=== PATIENT | female | born 1995 | race Two or more races ===

== ENCOUNTER 2017-09-28 21:55 | Observation (INO) | payer MEDICAID | END 2017-09-28 23:05 | disposition home or self-care (01) | DRG 566 | LOC: LDRP 21:55 → EDBD 21:55 | PROVIDERS: ADMIT Obstetrics & Gynecology; ATTEND Obstetrics & Gynecology | DX: O26.893 Other specified pregnancy related conditions, third trimester (principal); G44.89 Other headache syndrome; O99.350 Diseases of the nervous system complicating pregnancy, unspecified trimester; O42.92 Full-term premature rupture of membranes, unspecified as to length of time between rupture and onset of labor; O62.9 Abnormality of forces of labor, unspecified; M54.9 Dorsalgia, unspecified; R10.9 Unspecified abdominal pain; Z3A.37 37 weeks gestation of pregnancy | CPT/HCPCS: 59025; 81002; G0378 ==

== ENCOUNTER 2017-10-09 10:45 | Observation (INO) | payer MEDICAID ==
[2017-10-09 12:31] LABS: INR 0.88 (0.9-1.15); Partial Thromboplastin Time 26.8 sec (23.78-33.04); Prothrombin Time 9.5 sec (9.27-12.13)
[2017-10-09 12:40] LABS: Basophils # (auto) 0 uL; Basophils % (auto) 0.1 % (0.0-2.0); Eosinophils # (auto) 0.1 uL; Eosinophils % (auto) 1.2 % (0.0-7.0); Hematocrit 37.2 % (36.0-46.0); Hemoglobin 12.9 g/dL (12.2-16.2); Lymphocytes # (auto) 1.9 uL; Lymphocytes % (auto) 19.7 % (10.0-50.0); Mean Corpuscular Hemoglobin 32.8 pg (28.0-32.0); Mean Corpuscular Hgb Conc. 34.8 g/dL (32.0-36.0); Mean Corpuscular Volume 94.3 fL (80.0-100.0); Monocytes # (auto) 0.7 uL; Monocytes % (auto) 7.2 % (0.0-12.0); Neutrophils # (auto) 6.8 uL; Neutrophils % (auto) 71.8 % (37.0-80.0); Nucleated Red Blood Cells % 0.1 %; Platelet Count (auto) 265 10^3/uL (140-450); Red Blood Cells 3.95 10^6/uL (4.0-5.20); Red Cell Distribution Width 13.6 % (11.8-14.3); White Blood Cell 9.5 10^3/uL (4.4-10.8)
[2017-10-09 12:48] LABS: Albumin 2.8 g/dL (3.4-5.0); BUN/Creatinine Ratio 17.6; Bilirubin, Total 0.3 mg/dL (0.2-1.0); Calcium 9.2 mg/dL (8.5-10.1); Potassium 3.9 mmol/L (3.5-5.1); Total Protein 7.1 g/dL (6.4-8.2); Uric Acid 5.2 mg/dL (2.6-6.0)
[2017-10-09 12:51] LABS: Urine Bacteria MOD /hpf (None Seen); Urine Blood Negative /uL (Negative); Urine Specific Gravity 1.007 (1.001-1.035); Urine WBC 8 /hpf (0 - 5)
== END 2017-10-09 13:20 | disposition home or self-care (01) | DRG 566 ==
LOC: LDRP 10:45
PROVIDERS: ADMIT Obstetrics & Gynecology; ATTEND Obstetrics & Gynecology
DX: O36.8130 Decreased fetal movements, third trimester, not applicable or unspecified (principal); O32.1XX0 Maternal care for breech presentation, not applicable or unspecified; Z3A.39 39 weeks gestation of pregnancy
CPT/HCPCS: 36415; 59025; 76818; 80053; 81001; 81002; 84550; 85025; 85610; 85730; G0378

== ENCOUNTER 2017-10-11 05:10 | Inpatient (IN) | payer MEDICAID ==
[2017-10-11] VITALS (10 sets, daily range): BP systolic 95–128; BP diastolic 55–81
[~2017-10-11] VITALS: Ht 165.1 cm; Wt 87.1 kg
[2017-10-11] MEDS ORDERED: TETRACAINE 1% INJ 2 ML VIAL IJ ONE (06:43)
[2017-10-11 07:06] LABS: Basophils # (auto) 0 uL; Basophils % (auto) 0.1 % (0.0-2.0); Eosinophils # (auto) 0.1 uL; Eosinophils % (auto) 1.5 % (0.0-7.0); Hemoglobin 12.3 g/dL (12.2-16.2); Lymphocytes # (auto) 1.8 uL; Lymphocytes % (auto) 22.5 % (10.0-50.0); Mean Corpuscular Hemoglobin 32.9 pg (28.0-32.0); Mean Corpuscular Volume 94.1 fL (80.0-100.0); Monocytes # (auto) 0.6 uL; Monocytes % (auto) 7.2 % (0.0-12.0); Neutrophils # (auto) 5.4 uL; Neutrophils % (auto) 68.7 % (37.0-80.0); Nucleated Red Blood Cells % 0.1 %; Platelet Count (auto) 229 10^3/uL (140-450); Red Blood Cells 3.73 10^6/uL (4.0-5.20); Red Cell Distribution Width 13.5 % (11.8-14.3); White Blood Cell 7.9 10^3/uL (4.4-10.8)
[2017-10-11 07:18] LABS: Urine Bacteria FEW /hpf (None Seen); Urine Blood Negative /uL (Negative); Urine Mucus FEW (None Seen); Urine Specific Gravity 1.011 (1.001-1.035); Urine WBC 4 /hpf (0 - 5)
[2017-10-11 07:25] LABS: Albumin 2.6 g/dL (3.4-5.0); BUN/Creatinine Ratio 14.9; Calcium 8.9 mg/dL (8.5-10.1); INR 0.93 (0.9-1.15); Partial Thromboplastin Time 26.6 sec (23.78-33.04); Potassium 3.7 mmol/L (3.5-5.1)
[2017-10-11 07:30] LABS: Bilirubin, Total 0.4 mg/dL (0.2-1.0); Total Protein 6.6 g/dL (6.4-8.2)
[2017-10-11] MEDS ORDERED: PHENYLEPHRINE HCL 10 MG/ML VL IV ONE (09:35)
[2017-10-11] MEDS ORDERED: fentaNYL CITRATE 100 MCG/2 ML VL ONE (09:39)
[2017-10-11] MEDS ORDERED: MORPHINE SULF(PF) 0.5MG/ML 10ML VIAL ONE (09:39)
[2017-10-11] MEDS ORDERED: MIDAZOLAM HCL 1MG/1ML-2 ML VIAL ONE (09:40)
[2017-10-11] MEDS ORDERED: ceFAZolin 1GM VL ONE (10:01)
[2017-10-11] MEDS ORDERED: OXYTOCIN 10 UNIT/ML 10ML VIAL ONE (10:01)
[2017-10-11] MEDS ORDERED: ceFAZolin 1GM/100ML 50 ML IV SCH (10:45)
[2017-10-11] MEDS ORDERED: ONDANSETRON HCL 4 MG/2 ML VIAL IV PRN ×2 (10:45→11:00)
[2017-10-11] MEDS ORDERED: MORPHINE SULFATE 4 MG/ML SYR/VIAL IV PRN (10:45)
[2017-10-11] MEDS ORDERED: KETOROLAC TROMETH 30 MG/ML 1ML VIAL IV PRN ×2 (10:45→11:00)
[2017-10-11] MEDS ORDERED: diphenhdrAMINE HCL 50 MG/1 ML VL IV PRN (11:00)
[2017-10-11] MEDS ORDERED: NALBUPHINE HCL 10 MG/1ml INJECTION SUBCUT ONE (11:00)
[2017-10-11] MEDS ORDERED: ePHEDrine SULFATE 50 MG/ML AMP IV PRN (11:00)
[2017-10-11] MEDS ORDERED: LABETALOL HCL 5 MG/ML 4ML SYRINGE IV PRN (11:00)
[2017-10-11] MEDS ORDERED: DEXAMETHASONE SOD PHOS 10MG/1ML VIAL INJ IV PRN (11:00)
[2017-10-11] MEDS ORDERED: NALOXONE HCL 0.4 MG/ML VIAL IV PRN (11:00)
[2017-10-11] MEDS ORDERED: HYDROmorphone HCL 2 MG/ML VL IV PRN (11:00)
[2017-10-11] MEDS: LACT. RINGERS/OXYTOCIN 20UNITS 1,000 ML IV SCH ×2 (12:10→17:15)
[2017-10-11] MEDS: LACTATED RINGER'S 1,000 ML IV SCH ×2 (15:00→16:31)
[2017-10-11] MEDS: ceFAZolin 1GM/100ML 50 ML IV SCH (17:47)
[2017-10-11 20:00] LABS: Basophils # (auto) 0 uL; Basophils % (auto) 0.1 % (0.0-2.0); Eosinophils # (auto) 0 uL; Eosinophils % (auto) 0.3 % (0.0-7.0); Hematocrit 36.6 % (36.0-46.0); Hemoglobin 12.5 g/dL (12.2-16.2); Lymphocytes # (auto) 1.6 uL; Lymphocytes % (auto) 13.8 % (10.0-50.0); Mean Corpuscular Hemoglobin 32.7 pg (28.0-32.0); Mean Corpuscular Hgb Conc. 34.2 g/dL (32.0-36.0); Mean Corpuscular Volume 95.5 fL (80.0-100.0); Monocytes # (auto) 0.8 uL; Neutrophils % (auto) 78.8 % (37.0-80.0); Nucleated Red Blood Cells % 0.1 %; Platelet Count (auto) 236 10^3/uL (140-450); Red Blood Cells 3.83 10^6/uL (4.0-5.20); Red Cell Distribution Width 13.1 % (11.8-14.3); White Blood Cell 11.5 10^3/uL (4.4-10.8)
[2017-10-12] MEDS: ceFAZolin 1GM/100ML 50 ML IV SCH ×2 (01:43→10:10)
[2017-10-12 02:50] VITALS: BP 107/55
[2017-10-12 07:17] VITALS: BP 120/71
[2017-10-12 07:45] LABS: Basophils # (auto) 0 uL; Basophils % (auto) 0.1 % (0.0-2.0); Eosinophils # (auto) 0.1 uL; Eosinophils % (auto) 0.5 % (0.0-7.0); Hematocrit 35.8 % (36.0-46.0); Hemoglobin 12.2 g/dL (12.2-16.2); Lymphocytes # (auto) 1.7 uL; Mean Corpuscular Hemoglobin 32.5 pg (28.0-32.0); Mean Corpuscular Hgb Conc. 34.1 g/dL (32.0-36.0); Mean Corpuscular Volume 95.2 fL (80.0-100.0); Monocytes # (auto) 0.6 uL; Monocytes % (auto) 5.9 % (0.0-12.0); Neutrophils % (auto) 77.5 % (37.0-80.0); Nucleated Red Blood Cells % 0.1 %; Platelet Count (auto) 244 10^3/uL (140-450); Red Blood Cells 3.76 10^6/uL (4.0-5.20); Red Cell Distribution Width 13.5 % (11.8-14.3); White Blood Cell 10.3 10^3/uL (4.4-10.8)
[2017-10-12] MEDS ORDERED: BISACODYL 10 MG RECT SUPP PR PRN (08:15)
[2017-10-12] MEDS: LACTATED RINGER'S 1,000 ML IV SCH ×2 (08:30→18:04)
[2017-10-12] MEDS ORDERED: HYDROcodone-ACET 5/325MG TAB PO PRN (09:00)
[2017-10-12] MEDS: DOCUSATE SOD 100 MG CAP PO SCH ×2 (10:10→22:11)
[2017-10-12] MEDS: SIMETHICONE 80 MG CHEWABLE TABLET PO SCH ×3 (12:02→22:11)
[2017-10-12 15:26] VITALS: BP 117/60
[2017-10-12] MEDS: HYDROcodone-ACET 5/325MG TAB PO PRN ×2 (17:47→23:36)
[2017-10-12 19:00] VITALS: BP 120/70
[2017-10-12 23:00] VITALS: BP 116/72
[2017-10-13 03:30] VITALS: BP 111/55
[2017-10-13] MEDS: IBUPROFEN 800 MG TAB PO PRN ×2 (03:34→13:12)
[2017-10-13] MEDS: LACTATED RINGER'S 1,000 ML IV SCH ×2 (04:04→14:04)
[2017-10-13] MEDS: SIMETHICONE 80 MG CHEWABLE TABLET PO SCH ×4 (06:00→22:15)
[2017-10-13 07:10] VITALS: BP 110/64
[2017-10-13] MEDS: HYDROcodone-ACET 5/325MG TAB PO PRN ×3 (07:28→22:15)
[2017-10-13] MEDS: DOCUSATE SOD 100 MG CAP PO SCH ×2 (09:44→22:15)
[2017-10-13 11:19] VITALS: BP 116/62
[2017-10-13 15:28] VITALS: BP 128/80
[2017-10-13 19:00] VITALS: BP 137/74
[2017-10-13 22:58] VITALS: BP 130/76
[2017-10-14] MEDS: IBUPROFEN 800 MG TAB PO PRN (01:28)
[2017-10-14 04:00] VITALS: BP 124/74
[2017-10-14] MEDS: HYDROcodone-ACET 5/325MG TAB PO PRN ×2 (05:56→10:10)
[2017-10-14] MEDS: SIMETHICONE 80 MG CHEWABLE TABLET PO SCH (05:57)
[2017-10-14 07:00] VITALS: BP 136/82
[2017-10-14] MEDS: DOCUSATE SOD 100 MG CAP PO SCH (10:10)
== END 2017-10-14 11:24 | disposition home or self-care (01) | DRG 540 ==
LOC: LDRP 05:10
PROVIDERS: ADMIT Obstetrics & Gynecology; ATTEND Obstetrics & Gynecology
PROC: 0UL70CZ Occlusion of Bilateral Fallopian Tubes with Extraluminal Device, Open Approach (ICD-10-PCS; 2017-10-11)
PROC: 10D00Z1 Extraction of Products of Conception, Low, Open Approach (ICD-10-PCS; principal; 2017-10-11 09:47)
DX: O32.8XX0 Maternal care for other malpresentation of fetus, not applicable or unspecified (principal); Z30.2 Encounter for sterilization; Z37.0 Single live birth; Z3A.39 39 weeks gestation of pregnancy
CPT/HCPCS: 36415; 51702; 59025; 76815; 80053; 81001; 85025; 85610; 85730; 86592; 86850; 86900; 86901; 96361; 96365; 96366; 96374; J0690; J1885; J2250; J2405; J2590